=== PATIENT | female | born 1975 | race Caucasian/White ===

== ENCOUNTER 2018-07-12 17:14 | Emergency (ER) | END 2018-07-12 19:25 | disposition home or self-care (01) ==

== ENCOUNTER 2018-09-13 09:12 | Emergency (ER) | END 2018-09-13 11:34 | disposition home or self-care (01) ==

== ENCOUNTER 2018-10-18 17:57 | Emergency (ER) | END 2018-10-18 20:56 | disposition home or self-care (01) ==

== ENCOUNTER 2019-01-22 19:55 | Emergency (ER) | payer OTHER ==
[~2019-01-22] VITALS: Ht 160 cm; Wt 75.0 kg
[~2019-01-22 19:55] MED LIST: CEPH-443 PO; FLUC150T PO; METR500T PO; PHEN-538 PO
[2019-01-22 20:01] VITALS: Ht 160 cm; Wt 75.0 kg
[2019-01-22] MEDS ORDERED: CEFTRIAXONE 250 MG INJ IM STA (22:01)
[2019-01-22] MEDS ORDERED: AZITHROMYCIN 250 MG TAB PO STA (22:01)
[2019-01-22] MEDS ORDERED: FLUCONAZOLE 150 MG TAB PO STA ×2 (22:01→22:56)
[2019-01-22] MEDS ORDERED: KETOROLAC 30 MG INJ IV STA (22:56)
[2019-01-22] MEDS ORDERED: ACYCLOVIR 400 MG TAB PO ONE (23:00)
--- NOTE | 2019-01-22 23:04 | ERD ---
ER Documentation Chief Complaint Chief Complaint DYSURIA AND GENITAL RASH X YESTERDAY HPI 43-year-old female with past medical history of hypertension, diabetes who presents with 1 day complaint of dysuria, vaginal discharge, vaginal blisters. States she thinks she may have a yeast infection and UTI. Reports she has 1 new sexual partner and has been engaging in regular sexual intercourse without the use of condoms. She denies previous history of STIs but does report frequent UTI as well as yeast infections. She otherwise is without complaint. ROS All systems reviewed and are negative except as per history of present illness. Medications Home Meds Active Scripts Cephalexin* (Keflex*) 500 Mg Capsule, 500 MG PO BID for 7 Days, CAP Prov:JEUDINEALISON-C 01/23/19 Acyclovir* (Zovirax*) 800 Mg Tablet, 400 MG PO TID for 9 Days, TAB start on 01/24/19 Prov:JEUDINEALISON-C 01/23/19 Fluconazole* (Diflucan*) 150 Mg Tablet, 150 MG PO ONCE, #1 TAB Prov:JERMAIN IVEY PA-C 10/18/18 Cephalexin* (Keflex*) 500 Mg Capsule, 500 MG PO QID for 5 Days, CAP Prov:JERMAIN IVEY PA-C 10/18/18 Metronidazole* (Flagyl*) 500 Mg Tablet, 500 MG PO TID for 7 Days, TAB Prov:PASILABAN,KLAR F 09/13/18 Cephalexin* (Keflex*) 500 Mg Capsule, 500 MG PO QID for 5 Days, CAP Prov:PASILABAN,KLAR F 09/13/18 Phenazopyridine Hcl* (Pyridium*) 200 Mg Tab, 200 MG PO TID PRN for URINARY PAIN, #6 TAB Prov:PASILABAN,KLAR F 09/13/18 Fluconazole* (Diflucan*) 150 Mg Tablet, 150 MG PO ONCE, #1 TAB Prov:JERMAIN IVEY PA-C 07/12/18 Cephalexin* (Keflex*) 500 Mg Capsule, 500 MG PO QID for 5 Days, CAP Prov:JERMAIN IVEYC 07/12/18 Allergies Allergies: Coded Allergies: No Known Allergy (Unverified , 07/12/18) PMhx/Soc Medical and Surgical Hx: pt denies Medical Hx, pt denies Surgical Hx History of Surgery: Yes ( ) Anesthesia Reaction: No Hx Neurological Disorder: No Hx Respiratory Disorders: No Hx Cardiac Disorders: No Hx Psychiatric Problems: No Hx Miscellaneous Medical Probl: No Hx Alcohol Use: No Hx Substance Use: No Hx Tobacco Use: No Smoking Status: Never smoker FmHx Family History: No diabetes, No coronary disease, No other Physical Exam Vitals Vital Signs Date Temp Pulse Resp B/P (MAP) Pulse Ox O2 O2 Flow FiO2 Time Delivery Rate 01/22/19 97.6 96 15 133/70 98 20:01 (91) Physical Exam I have reviewed the triage vital signs. Const: Well nourished, well developed, appears stated age HENT: NCAT, Neck supple without meningismus CV: RRR, Warm, well-perfused extremities RESP: CTAB, Unlabored respiratory effort GI: soft, non-tender, non-distended, no masses Pelvic: thick white discharge noted in vault, labia, vesicular lesions with erythematous base, painful to palpation MSK: No gross deformities appreciated Neuro: Alert, surfboard maker II-XII grossly intact. Sensation and motor function of extremities grossly intact. Psych: Appropriate mood and affect. Results 24 hrs Laboratory Tests Test 01/22/19 22:17 01/22/19 22:28 Urine Color YELLOW Urine Clarity CLOUDY Urine pH 5.0 Urine Specific [place] 1.039 Urine Ketones NEGATIVE mg/dL Urine Nitrite NEGATIVE mg/dL Urine Bilirubin NEGATIVE mg/dL Urine Urobilinogen NEGATIVE mg/dL Urine Leukocyte Esterase 2+ Sisi/ul Urine Microscopic RBC 14 /HPF Urine Microscopic WBC 155 /HPF Urine Squamous Epithelial Cells FEW /HPF Urine Bacteria FEW /HPF Urine Mucus FEW /HPF Urine Yeast (Budding) FEW /HPF Urine Hemoglobin 1+ mg/dL Urine Glucose 3+ mg/dL Urine Total Protein NEGATIVE mg/dl POC Beta HCG, Qualitative NEGATIVE Current Medications Medications Dose Sig/Maria Isabel Start Time Status Last (Trade) Ordered Route PRN Stop Time Admin Dose Reason Admin 1,000 mg ONCE STAT 01/22/19 DC 01/22/19 Azithromycin PO 22:01 22:29 (Zithromax) 01/22/19 22:10 Ceftriaxone 250 mg ONCE STAT 01/22/19 DC 01/22/19 Sodium IM 22:01 22:30 (Rocephin) 01/22/19 22:10 Fluconazole 150 mg ONCE STAT 01/22/19 DC 01/22/19 (Diflucan) PO 22:01 22:29 01/22/19 22:10 Fluconazole 150 mg ONCE STAT 01/22/19 DC (Diflucan) PO 22:56 01/22/19 23:37 Ketorolac 30 mg ONCE STAT 01/22/19 DC Tromethamine IV 22:56 (Toradol) 01/22/19 23:37 Acyclovir 400 mg ONCE ONCE 01/22/19 DC 01/22/19 (Zovirax) PO 23:00 23:39 01/22/19 23:01 Ketorolac 30 mg ONCE STAT 01/22/19 DC 01/22/19 Tromethamine IM 23:34 23:40 (Toradol) 01/22/19 23:37 Procedures/MDM 43 yo F with pmhx of HTN, DM who presents with dysuria, vaginal discharge, "vaginal blisters". Exam and history concerning for multiple STI's. Given prominent risk factors electing to treat for GC/Chlamydia, vaginal candidiasis,? herpes infection given painful ulcers Workup: UA, gonorrhea/chlamydia RNA, BV/Trichomonas Findings: UA +, Wet mount No clue cells seen, no motile trichomonas ED Tx: ceftriaxone, azithromycin. fluconazole, acyclovir, Toradol TFU for G/C testing results Disposition: Counseled regarding safe sex practices and partner notification. Discussed return precautions and clinic or primary care follow up within 48 hours. Return or call ED for results of testing. Follow up with PMD for additional testing (herpes). Departure Condition: Stable Patient Instructions: Chlamydia, Gonorrhea, Urinary Tract Infections in Women ALISON CRAIG PA-C Jan 22, 2019 23:04
[2019-01-22] MEDS ORDERED: KETOROLAC 30 MG INJ IM STA (23:34)
[2019-01-23] MEDS ORDERED: ACYC800T5 PO (00:07)
[2019-01-23] MEDS ORDERED: CEPH-443 PO (00:16)
[2019-01-23 02:05] VITALS: BP 139/70; PULSE 90; RESP 16
== END 2019-01-23 02:07 | disposition home or self-care (01) ==
LOC: FTE 19:55
DX: N89.8 Other specified noninflammatory disorders of vagina (principal)
CPT/HCPCS: 81001; 81025; 87086; 87210; 87591; 96372; J0696; J1885; Z7502; Z7610; 87110